=== PATIENT | female | born 1985 | race African-American/Black ===

== ENCOUNTER 2021-08-02 22:19 | Emergency (ER) | payer OTHER ==
[~2021-08-02] VITALS: Ht 180.3 cm; Wt 156.5 kg
[2021-08-02 23:29] VITALS: BP 162/95
[2021-08-03] MEDS ORDERED: IBUPROFEN 400 MG TABLET ONE (00:10)
[2021-08-03] MEDS: IBUPROFEN 400 MG TABLET PO ONE (00:13)
--- NOTE | 2021-08-03 00:14 | NUR ---
Patient discharged to home in stable condition. Written and verbal after care instructions given. Patient verbalizes understanding of instruction.
== END 2021-08-03 00:16 | disposition home or self-care (01) ==
LOC: ER 22:25
DX: S80.11XA Contusion of right lower leg, initial encounter (principal); J45.909 Unspecified asthma, uncomplicated; W01.198A Fall on same level from slipping, tripping and stumbling with subsequent striking against other object, initial encounter; Y93.89 Activity, other specified; Y92.091 Bathroom in other non-institutional residence as the place of occurrence of the external cause; Y99.8 Other external cause status
CPT/HCPCS: 73590-TC